=== PATIENT | female | born 1970 | race Caucasian/White ===

== ENCOUNTER → 2023-01-16 | Outpatient (REF) | payer MEDICAID ==
[2023-01-16 17:40] LABS: BASO # 0.1 10^3/uL (0.0-0.2); EOS # 0.1 10^3/uL (0.0-0.5); EOS % 2.7 % (0.0-3.0); HEMATOCRIT 39.2 % (36.0-47.0); HEMOGLOBIN 12.7 g/dl (12.0-15.5); LYMPH # 2.4 10^3/uL (1.5-5.0); LYMPH % 45.8 % (24.0-44.0); MEAN CORPUSCULAR HGB CONC 32.4 g/dl (32.0-36.5); MEAN CORPUSCULAR VOLUME 92.7 fl (80.0-96.0); MONO # 0.4 10^3/uL (0.0-0.8); MONO % 7.6 % (2.0-8.0); NEUTROPHILS # 2.2 10^3/uL (1.5-8.5); NEUTROPHILS % 42.7 % (36.0-66.0); RED BLOOD COUNT 4.23 10^6/uL (4.00-5.40); WHITE BLOOD COUNT 5.2 10^3/uL (4.0-10.0)
[2023-01-16 18:00] LABS: URIC ACID 4.1 MG/DL (3.1-7.8)
[2023-01-16 18:02] LABS: C REACTIVE PROTEIN QUANTITATIV < 0.40 MG/DL (<1.0); RHEUMATOID FACTOR QUANT < 3.5 IU/ML (<14); THYROID STIMULATING HORMONE 1.394 uIU/ML (0.55-4.78)
[2023-01-16 18:04] LABS: ALBUMIN 4.2 G/DL (3.2-5.2); ALKALINE PHOSPHATASE 69 U/L (46-116); ALT/SGPT 15 U/L (7.0-40); AST/SGOT 21 U/L (<34); BILIRUBIN,TOTAL 0.6 MG/DL (0.3-1.2); BLOOD UREA NITROGEN 13 MG/DL (9-23); CALCIUM LEVEL 9.5 MG/DL (8.5-10.1); CARBON DIOXIDE LEVEL 30 MMOL/L (20-31); CHLORIDE LEVEL 103 MMOL/L (98-107); CHOLESTEROL LEVEL 241 MG/DL (<200); CHOLESTEROL RISK RATIO 3.37 (<5); CREATININE FOR GFR 0.74 MG/DL (0.55-1.30); GLOMERULAR FILTRATION RATE > 60.0 (>51); GLUCOSE, FASTING 77 MG/DL (60-100); HDL CHOLESTEROL 71.4 MG/DL (>40); LDL CHOLESTEROL 153.8 MG/DL (<100); NON-HDL-C 169.6 MG/DL; POTASSIUM SERUM 4.5 MMOL/L (3.5-5.1); SODIUM LEVEL 141 MMOL/L (136-145); TRIGLYCERIDES LEVEL 79 MG/DL (<150)
[2023-01-18 23:07] LABS: ANA (HEP2) Negative (.); CYCLIC CITRULLINATED PEPTIDE 1 units (0-19)
== END ==
LOC: M LAB REF 12:34
PROVIDERS: ATTEND Pediatrics
DX: R82.90 Unspecified abnormal findings in urine (principal); M79.7 Fibromyalgia

== ENCOUNTER → 2023-02-07 | Outpatient (CLI) | payer OTHER | LOC: M WHC 08:15 | PROVIDERS: ATTEND Pediatrics | DX: Z13.820 Encounter for screening for osteoporosis (principal); Z12.31 Encounter for screening mammogram for malignant neoplasm of breast ==

== ENCOUNTER → 2023-03-06 | Outpatient (CLI) | payer OTHER | LOC: M WHC 10:04 | PROVIDERS: ATTEND Pediatrics | DX: Z12.31 Encounter for screening mammogram for malignant neoplasm of breast (principal) ==

== ENCOUNTER → 2023-04-09 | Outpatient (CLI) | payer OTHER | LOC: M RAD 11:34 | PROVIDERS: ATTEND Pediatrics | DX: M54.16 Radiculopathy, lumbar region (principal) ==

== ENCOUNTER → 2023-04-19 | Outpatient (CLI) | payer OTHER | LOC: M RAD 11:16 | PROVIDERS: ATTEND Pediatrics | DX: R05.9 Cough, unspecified (principal) ==

== ENCOUNTER → 2023-04-25 | Outpatient (CLI) | payer OTHER | LOC: M SOG 11:34 | PROVIDERS: ATTEND Physician Assistant | DX: M25.551 Pain in right hip (principal) ==

== ENCOUNTER → 2023-05-04 | Outpatient (CLI) | payer OTHER | LOC: M RAD 09:18 | PROVIDERS: ATTEND Physician Assistant | DX: M54.50 Low back pain, unspecified (principal) ==

== ENCOUNTER → 2023-06-20 | Outpatient (REF) | payer OTHER ==
[2023-06-20 18:02] LABS: BASO % 0.7 % (0.0-1.0); EOS # 0.2 10^3/uL (0.0-0.5); EOS % 4.8 % (0.0-3.0); HEMATOCRIT 39.6 % (36.0-47.0); HEMOGLOBIN 13.2 g/dl (12.0-15.5); LYMPH # 1.8 10^3/uL (1.5-5.0); LYMPH % 43.3 % (24.0-44.0); MEAN CORPUSCULAR HEMOGLOBIN 30.5 pg (27.0-33.0); MEAN CORPUSCULAR HGB CONC 33.3 g/dl (32.0-36.5); MEAN CORPUSCULAR VOLUME 91.5 fl (80.0-96.0); MONO # 0.4 10^3/uL (0.0-0.8); MONO % 9.3 % (2.0-8.0); NEUTROPHILS # 1.8 10^3/uL (1.5-8.5); NEUTROPHILS % 41.7 % (36.0-66.0); RED BLOOD COUNT 4.33 10^6/uL (4.00-5.40); WHITE BLOOD COUNT 4.2 10^3/uL (4.0-10.0)
[2023-06-20 18:16] LABS: ERYTHROCYTE SEDIMENTATION RATE 34 mm/hr (0-30)
[2023-06-20 18:23] LABS: THYROID STIMULATING HORMONE 1.884 uIU/ML (0.55-4.78); TOTAL 25(OH) VITAMIN D 34.2 NG/ML (20.0-100.0)
[2023-06-20 18:25] LABS: ALBUMIN 4.1 G/DL (3.2-5.2); ALKALINE PHOSPHATASE 64 U/L (46-116); ALT/SGPT 19 U/L (7.0-40); AST/SGOT 20 U/L (<34); BILIRUBIN,TOTAL 0.8 MG/DL (0.3-1.2); BLOOD UREA NITROGEN 14 MG/DL (9-23); CALCIUM LEVEL 9.5 MG/DL (8.5-10.1); CARBON DIOXIDE LEVEL 31 MMOL/L (20-31); CHLORIDE LEVEL 104 MMOL/L (98-107); CREATININE FOR GFR 0.75 MG/DL (0.55-1.30); GLOMERULAR FILTRATION RATE > 60.0 (>51); GLUCOSE, FASTING 73 MG/DL (60-100); POTASSIUM SERUM 4.5 MMOL/L (3.5-5.1); RHEUMATOID FACTOR QUANT 6.2 IU/ML (<14); SODIUM LEVEL 140 MMOL/L (136-145); TOTAL PROTEIN 7.8 G/DL (5.7-8.2)
[2023-06-22 14:14] LABS: ANTINUCLEAR ANTIBODIES DIRECT Negative (Negative)
== END ==
LOC: M LABDRWCV 17:18
PROVIDERS: ATTEND Psychiatry & Neurology Neurology
DX: R51.9 Headache, unspecified (principal)

== ENCOUNTER → 2023-08-01 | Outpatient (CLI) | payer OTHER | LOC: M WUC 10:32 | PROVIDERS: ATTEND Pediatrics | DX: M19.041 Primary osteoarthritis, right hand (principal); M19.042 Primary osteoarthritis, left hand; E03.9 Hypothyroidism, unspecified ==

== ENCOUNTER → 2023-11-30 | Outpatient (CLI) | payer OTHER | LOC: M PLAIMG 10:38 | PROVIDERS: ATTEND Otolaryngology | DX: J01.90 Acute sinusitis, unspecified (principal) ==

== ENCOUNTER → 2023-12-10 | Outpatient (REF) | payer OTHER ==
[2023-12-10 18:41] LABS: BASO % 0.5 % (0.0-1.0); EOS # 0.2 10^3/uL (0.0-0.5); HEMATOCRIT 39.7 % (36.0-47.0); LYMPH # 2.3 10^3/uL (1.5-5.0); LYMPH % 36.5 % (24.0-44.0); MEAN CORPUSCULAR HEMOGLOBIN 30.4 pg (27.0-33.0); MEAN CORPUSCULAR HGB CONC 32.7 g/dl (32.0-36.5); MONO # 0.6 10^3/uL (0.0-0.8); NEUTROPHILS # 3.3 10^3/uL (1.5-8.5); RED BLOOD COUNT 4.27 10^6/uL (4.00-5.40); WHITE BLOOD COUNT 6.4 10^3/uL (4.0-10.0)
== END ==
LOC: M LAB REF 16:22
PROVIDERS: ATTEND Pediatrics
DX: M79.7 Fibromyalgia (principal); E03.9 Hypothyroidism, unspecified

== ENCOUNTER → 2023-12-13 | Outpatient (REF) | payer OTHER ==
[2023-12-17 14:38] LABS: HPV APTIMA Not Detected (Not Detected)
== END ==
LOC: M SFHCWAGY 14:42
PROVIDERS: ATTEND Nurse Practitioner Family
DX: Z12.4 Encounter for screening for malignant neoplasm of cervix (principal); N95.2 Postmenopausal atrophic vaginitis

== ENCOUNTER → 2023-12-24 | Outpatient (CLI) | payer OTHER ==
[2023-12-24 10:37] LABS: ERYTHROCYTE SEDIMENTATION RATE 24 mm/hr (0-30)
[2023-12-24 10:41] LABS: BASO # 0.1 10^3/uL (0.0-0.2); BASO % 1.2 % (0.0-1.0); EOS # 0.2 10^3/uL (0.0-0.5); EOS % 4.1 % (0.0-3.0); HEMATOCRIT 38.2 % (36.0-47.0); HEMOGLOBIN 12.6 g/dl (12.0-15.5); LYMPH # 2.1 10^3/uL (1.5-5.0); LYMPH % 47.7 % (24.0-44.0); MEAN CORPUSCULAR HEMOGLOBIN 30.7 pg (27.0-33.0); MEAN CORPUSCULAR VOLUME 92.9 fl (80.0-96.0); MONO # 0.4 10^3/uL (0.0-0.8); MONO % 8.1 % (2.0-8.0); NEUTROPHILS # 1.7 10^3/uL (1.5-8.5); NEUTROPHILS % 38.7 % (36.0-66.0); RED BLOOD COUNT 4.11 10^6/uL (4.00-5.40); WHITE BLOOD COUNT 4.3 10^3/uL (4.0-10.0)
[2023-12-24 11:00] LABS: URIC ACID 4.8 MG/DL (3.1-7.8)
[2023-12-24 11:01] LABS: C REACTIVE PROTEIN QUANTITATIV < 0.40 MG/DL (<1.0)
[2023-12-24 11:03] LABS: ALBUMIN 4.1 G/DL (3.2-5.2); ALKALINE PHOSPHATASE 74 U/L (46-116); ALT/SGPT 18 U/L (7.0-40); AST/SGOT 19 U/L (<34); BILIRUBIN,TOTAL 0.5 MG/DL (0.3-1.2); BLOOD UREA NITROGEN 12 MG/DL (9-23); CALCIUM LEVEL 9.1 MG/DL (8.5-10.1); CARBON DIOXIDE LEVEL 30 MMOL/L (20-31); CHLORIDE LEVEL 105 MMOL/L (98-107); CREATININE FOR GFR 0.77 MG/DL (0.55-1.30); GLOMERULAR FILTRATION RATE > 60.0 (>51); GLUCOSE, FASTING 88 MG/DL (60-100); POTASSIUM SERUM 3.9 MMOL/L (3.5-5.1); SODIUM LEVEL 142 MMOL/L (136-145); TOTAL PROTEIN 7.9 G/DL (5.7-8.2)
[2023-12-24 14:27] LABS: RHEUMATOID FACTOR QUANT 7.1 IU/ML (<14)
[2023-12-25 13:16] LABS: ANA SCREEN, IFA NEGATIVE (NEGATIVE)
[2023-12-25 23:07] LABS: CYCLIC CITRULLINATED PEPTIDE < 16 UNITS (<20)
== END ==
LOC: M WUC 08:22
PROVIDERS: ATTEND Orthopaedic Surgery Hand Surgery
DX: G89.29 Other chronic pain (principal)

== ENCOUNTER → 2024-01-16 | Outpatient (CLI) | payer OTHER ==
[2024-01-16 13:07] LABS: FREE T4 1.52 NG/DL (0.89-1.76); THYROID STIMULATING HORMONE 0.539 uIU/ML (0.55-4.78); THYROXINE (T4) 11.5 UG/DL (4.5-10.9)
== END ==
LOC: M LAB 11:27
PROVIDERS: ATTEND Nurse Practitioner Family
DX: E06.3 Autoimmune thyroiditis (principal)

== ENCOUNTER → 2024-01-31 | Outpatient (CLI) | payer OTHER | LOC: M CARPUL 10:23 | PROVIDERS: ATTEND Pediatrics | DX: R06.00 Dyspnea, unspecified (principal) ==

== ENCOUNTER → 2024-02-08 | Outpatient (REF) | payer OTHER | LOC: M LAB REF 10:07 | PROVIDERS: ATTEND Nurse Practitioner Family | DX: E06.3 Autoimmune thyroiditis (principal) ==

== ENCOUNTER 2024-03-24 09:32 | Day surgery (SDC) | payer OTHER ==
[~2024-03-24] VITALS: Ht 160 cm; Wt 71.2 kg
[~2024-03-24 09:32] MED LIST: LEVO-92 PO; MAGN250T7 PO; MULT-40 PO; NORT50CA PO
[2024-03-24] MEDS ORDERED: NS (Normal Saline) 0.9% 1,000 ML IV SCH (10:05)
[2024-03-24] MEDS ORDERED: SUGAMMADEX SODIUM 500 MG/5 ML VIAL (BRIDION) As Ordered ONE (10:13)
[2024-03-24] MEDS ORDERED: ONDANSETRON 4MG 2ML VIAL As Ordered ONE (10:13)
[2024-03-24] MEDS ORDERED: LIDOCAINE 2% 100MG/5ML SDV (FOR ANES.) As Ordered ONE (10:13)
[2024-03-24] MEDS ORDERED: ROCURONIUM BROMIDE 50MG/5ML VIAL As Ordered ONE (10:13)
[2024-03-24] MEDS ORDERED: propofoL 200 MG/20 ML VIAL As Ordered ONE (10:13)
[2024-03-24] MEDS ORDERED: MIDAZOLAM INJ 2MG/2ML VIAL As Ordered ONE (10:17)
[2024-03-24] MEDS ORDERED: fentaNYL 100 MCG/2 ML INJECTION As Ordered ONE (10:17)
[2024-03-24] MEDS: LIDOCAINE W/EPINEPHRINE 1% 20ML VIAL As Ordered ONE (12:00)
[2024-03-24] MEDS: COCAINE 4% 4ML NASAL SOLUTION BTL As Ordered ONE (12:00)
[2024-03-24] MEDS ORDERED: ACETAMINOPHEN 1000MG/100ML IV BAG As Ordered ONE (12:01)
[2024-03-24] MEDS: OXYMETAZOLINE 0.05% NASAL SPRAY (AFRIN) As Ordered ONE (12:15)
[2024-03-24] MEDS ORDERED: fentaNYL 100 MCG/2 ML INJECTION IV PRN ×2 (12:15)
[2024-03-24] MEDS ORDERED: oxyCODONE 5MG TAB PO PRN (12:15)
[2024-03-24] MEDS ORDERED: MEPERIDINE 25 MG/ML 1ML VIAL IV PRN ×2 (12:15)
[2024-03-24] MEDS ORDERED: ONDANSETRON 4MG 2ML VIAL IV PRN ×2 (12:15)
[2024-03-24] MEDS: oxyCODONE 5MG TAB PO PRN (12:37)
[2024-03-24] MEDS ORDERED: ANEXSIA, NORCO 7.5MG/325MG TABLET(HYDROCODONE/APAP) PO PRN (12:50)
[2024-03-24] MEDS ORDERED: LR 1,000 ML IV SCH (12:50)
[2024-03-24 13:15] VITALS: BP 129/61; TEMP 97; O2SAT 99
== END 2024-03-24 13:47 | disposition home or self-care (01) ==
LOC: M SDC 09:32
PROVIDERS: ATTEND Otolaryngology
DX: J34.3 Hypertrophy of nasal turbinates (principal); H93.13 Tinnitus, bilateral; E03.9 Hypothyroidism, unspecified; E78.00 Pure hypercholesterolemia, unspecified; Z79.890 Hormone replacement therapy; Z79.899 Other long term (current) drug therapy; G43.909 Migraine, unspecified, not intractable, without status migrainosus; Z91.018 Allergy to other foods; Z90.89 Acquired absence of other organs
CPT/HCPCS: 30140; 93005; C9143; J0131; J1100; J2250; J2405; J3010

== ENCOUNTER → 2024-03-27 | Outpatient (CLI) | payer OTHER ==
[2024-03-27 11:46] LABS: BASO % 0.8 % (0.0-1.0); EOS # 0.1 10^3/uL (0.0-0.5); EOS % 2.1 % (0.0-3.0); HEMATOCRIT 36.3 % (36.0-47.0); LYMPH # 2.3 10^3/uL (1.5-5.0); LYMPH % 44.8 % (24.0-44.0); MEAN CORPUSCULAR HEMOGLOBIN 29.8 pg (27.0-33.0); MEAN CORPUSCULAR HGB CONC 33.1 g/dl (32.0-36.5); MEAN CORPUSCULAR VOLUME 90.1 fl (80.0-96.0); MONO # 0.3 10^3/uL (0.0-0.8); MONO % 6.4 % (2.0-8.0); NEUTROPHILS # 2.3 10^3/uL (1.5-8.5); NEUTROPHILS % 45.7 % (36.0-66.0); PLATELET COUNT, AUTOMATED 186 10^3/uL (150-450); RED BLOOD COUNT 4.03 10^6/uL (4.00-5.40); WHITE BLOOD COUNT 5.1 10^3/uL (4.0-10.0)
[2024-03-27 12:01] LABS: ERYTHROCYTE SEDIMENTATION RATE 26 mm/hr (0-30)
[2024-03-27 12:11] LABS: URIC ACID 4.2 MG/DL (3.1-7.8)
[2024-03-27 12:13] LABS: C REACTIVE PROTEIN QUANTITATIV < 0.50 MG/DL (<1.0); THYROID STIMULATING HORMONE 1.707 uIU/ML (0.55-4.78)
[2024-03-27 12:14] LABS: FREE T4 1.77 NG/DL (0.89-1.76)
[2024-03-27 12:15] LABS: ALBUMIN 4.1 G/DL (3.2-5.2); ALKALINE PHOSPHATASE 57 U/L (35-104); ALT/SGPT 18 U/L (7.0-40); AST/SGOT 19 U/L (<34); BILIRUBIN,TOTAL 0.7 MG/DL (0.3-1.2); BLOOD UREA NITROGEN 11 MG/DL (9-23); CALCIUM LEVEL 9.4 MG/DL (8.5-10.1); CARBON DIOXIDE LEVEL 29 MMOL/L (20-31); CHLORIDE LEVEL 107 MMOL/L (98-107); CHOLESTEROL LEVEL 239 MG/DL (<200); CHOLESTEROL RISK RATIO 3.26 (<5); CREATININE FOR GFR 0.77 MG/DL (0.55-1.30); GLOMERULAR FILTRATION RATE > 60.0 (>51); GLUCOSE, FASTING 88 MG/DL (60-100); HDL CHOLESTEROL 73.3 MG/DL (>40); LDL CHOLESTEROL 152.5 MG/DL (<100); NON-HDL-C 165.7 MG/DL; POTASSIUM SERUM 4.2 MMOL/L (3.5-5.1); RHEUMATOID FACTOR QUANT 7.5 IU/ML (<14); SODIUM LEVEL 143 MMOL/L (136-145); TOTAL PROTEIN 7.8 G/DL (5.7-8.2); TRIGLYCERIDES LEVEL 66 MG/DL (<150)
== END ==
LOC: M LAB 11:00
PROVIDERS: ATTEND Registered Nurse
DX: M79.7 Fibromyalgia (principal); E78.2 Mixed hyperlipidemia

== ENCOUNTER → 2024-05-26 | Outpatient (CLI) | payer OTHER ==
[2024-05-26 15:00] LABS: FREE T4 1.27 NG/DL (0.89-1.76); THYROID STIMULATING HORMONE 5.002 uIU/ML (0.55-4.78)
== END ==
LOC: M PLALAB 11:11
PROVIDERS: ATTEND Nurse Practitioner Family
DX: E06.3 Autoimmune thyroiditis (principal)

== ENCOUNTER → 2024-05-26 | Outpatient (CLI) | payer OTHER | LOC: M PLALAB 11:09 | PROVIDERS: ATTEND Physician Assistant | DX: R06.02 Shortness of breath (principal); R05.9 Cough, unspecified; Z77.120 Contact with and (suspected) exposure to mold (toxic) ==

== ENCOUNTER → 2024-06-11 | Outpatient (CLI) | payer OTHER | LOC: M RAD 09:34 | PROVIDERS: ATTEND Physician Assistant | DX: R06.02 Shortness of breath (principal) ==

== ENCOUNTER → 2024-06-13 | Outpatient (REF) | payer OTHER ==
[2024-06-13 15:53] LABS: APPEARANCE, URINE CLEAR (CLEAR); BACTERIA, URINE AUTO NEGATIVE (NEGATIVE); BILIRUBIN, URINE AUTO NEGATIVE (NEGATIVE); BLOOD, URINE BLOOD NEGATIVE (NEGATIVE); COLOR, URINE STRAW (YELLOW); GLUCOSE, URINE (UA) AUTO NEGATIVE (NEGATIVE); KETONE, URINE AUTO NEGATIVE (NEGATIVE); LEUKOCYTE ESTERASE, URINE AUTO NEGATIVE (NEGATIVE); NITRITE, URINE AUTO NEGATIVE (NEGATIVE); PROTEIN, URINE AUTO NEGATIVE (NEGATIVE); RBC, URINE AUTO 0 /HPF (0-3); SPECIFIC GRAVITY URINE AUTO 1.003 (1.002-1.035); SQUAMOUS EPITHELIAL CELL UR AU 0 /HPF (0-6); UROBILINOGEN, URINE AUTO 0.2 mg/dL (0.0-2.0); WBC, URINE AUTO 0 /HPF (0-3)
[2024-06-13 15:57] LABS: COMPLEMENT C4 31.7 MG/DL (12-36)
[2024-06-13 15:58] LABS: ALBUMIN 4.2 G/DL (3.2-5.2); ALKALINE PHOSPHATASE 64 U/L (35-104); ALT/SGPT 16 U/L (7.0-40); AST/SGOT 19 U/L (<34); BILIRUBIN,DIRECT 0.2 MG/DL (<0.4); BILIRUBIN,TOTAL 0.9 MG/DL (0.3-1.2); BLOOD UREA NITROGEN 11 MG/DL (9-23); C REACTIVE PROTEIN QUANTITATIV < 0.50 MG/DL (<1.0); CALCIUM LEVEL 9.1 MG/DL (8.5-10.1); CARBON DIOXIDE LEVEL 31 MMOL/L (20-31); CHLORIDE LEVEL 103 MMOL/L (98-107); CREATININE FOR GFR 0.76 MG/DL (0.55-1.30); GLOMERULAR FILTRATION RATE > 60.0 (>51); GLUCOSE, FASTING 89 MG/DL (60-100); POTASSIUM SERUM 3.7 MMOL/L (3.5-5.1); SODIUM LEVEL 141 MMOL/L (136-145)
[2024-06-13 15:59] LABS: COMPLEMENT C3 137.4 MG/DL (90.0-170.0)
[2024-06-13 16:06] LABS: ERYTHROCYTE SEDIMENTATION RATE 26 mm/hr (0-30)
[2024-06-13 16:11] LABS: BASO % 0.7 % (0.0-1.0); EOS # 0.2 10^3/uL (0.0-0.5); EOS % 4.3 % (0.0-3.0); HEMATOCRIT 40.1 % (36.0-47.0); HEMOGLOBIN 12.7 g/dl (12.0-15.5); LYMPH # 1.9 10^3/uL (1.5-5.0); LYMPH % 44.9 % (24.0-44.0); MEAN CORPUSCULAR HEMOGLOBIN 29.8 pg (27.0-33.0); MEAN CORPUSCULAR HGB CONC 31.7 g/dl (32.0-36.5); MEAN CORPUSCULAR VOLUME 94.1 fl (80.0-96.0); MONO # 0.3 10^3/uL (0.0-0.8); MONO % 7.7 % (2.0-8.0); NEUTROPHILS # 1.7 10^3/uL (1.5-8.5); NEUTROPHILS % 42.2 % (36.0-66.0); RED BLOOD COUNT 4.26 10^6/uL (4.00-5.40); WHITE BLOOD COUNT 4.1 10^3/uL (4.0-10.0)
[2024-06-13 17:21] LABS: CREATININE,RANDOM URINE 37.6 MG/DL
[2024-06-13 17:22] LABS: TOTAL PROTEIN,RANDOM URINE < 6.0 MG/DL (0.0-14.0)
[2024-06-24 10:54] LABS: HLA-B27 NEGATIVE (NEGATIVE)
[2024-06-24 10:55] LABS: LUPUS ANTICOAGULANT NOT DETECTED (NOT DETECT); PTT-LA 40 SEC (<=40)
[2024-06-24 10:56] LABS: COMPLEMENT TOTAL (CH50) 45 U/mL (31-60); dRVVT 35 SEC (<=45)
== END ==
LOC: M SFHCRHEU 06:57
PROVIDERS: ATTEND Internal Medicine
DX: I73.00 Raynaud's syndrome without gangrene (principal); M25.40 Effusion, unspecified joint; M25.50 Pain in unspecified joint; H04.123 Dry eye syndrome of bilateral lacrimal glands; Z87.39 Personal history of other diseases of the musculoskeletal system and connective tissue

== ENCOUNTER → 2024-06-13 | Outpatient (CLI) | payer OTHER | LOC: M RAD 08:51 | PROVIDERS: ATTEND Internal Medicine | DX: M25.50 Pain in unspecified joint (principal) ==

== ENCOUNTER → 2024-07-10 | Outpatient (CLI) | payer OTHER ==
[~2024-07-10] MED LIST changes: +METHACHOLINE KIT (6 VIAL.NEB PREMIX) INH ONE
== END ==
LOC: M CARPUL 08:33
PROVIDERS: ATTEND Physician Assistant
DX: R06.02 Shortness of breath (principal)
CPT/HCPCS: 94070; 95070; J7674

== ENCOUNTER → 2024-07-10 | Outpatient (CLI) | payer OTHER ==
[~2024-07-10] MED LIST changes: -METHACHOLINE KIT (6 VIAL.NEB PREMIX) INH ONE
[2024-07-10 10:19] LABS: ALBUMIN 4.1 G/DL (3.2-5.2); BILIRUBIN,TOTAL 0.7 MG/DL (0.3-1.2); CALCIUM LEVEL 8.8 MG/DL (8.5-10.1); CHOLESTEROL RISK RATIO 3.43 (<5); CREATININE FOR GFR 0.8 MG/DL (0.55-1.30); GLOMERULAR FILTRATION RATE 88.6 (>51); HDL CHOLESTEROL 72.2 MG/DL (>40); LDL CHOLESTEROL 163.4 MG/DL (<100); NON-HDL-C 175.8 MG/DL; TOTAL PROTEIN 7.7 G/DL (5.7-8.2)
[2024-07-10 10:22] LABS: HEMOGLOBIN A1c 4.7 % (4.0-6.0)
== END ==
LOC: M LAB 08:36
PROVIDERS: ATTEND Internal Medicine Cardiovascular Disease
DX: R00.2 Palpitations (principal); I06.1 Rheumatic aortic insufficiency; R07.89 Other chest pain; R06.02 Shortness of breath; E78.2 Mixed hyperlipidemia; Z13.1 Encounter for screening for diabetes mellitus

== ENCOUNTER → 2024-07-24 | Outpatient (REF) | payer OTHER ==
[2024-07-24 18:58] LABS: THYROID STIMULATING HORMONE 2.337 uIU/ML (0.55-4.78)
[2024-07-24 18:59] LABS: FREE T4 1.52 NG/DL (0.89-1.76)
[2024-07-24 19:06] LABS: TOTAL T3 98.9 NG/DL (60.0-181.0)
== END ==
LOC: M LAB REF 17:38 → M LABDRWCV 17:38
PROVIDERS: ATTEND Nurse Practitioner Family
DX: E06.3 Autoimmune thyroiditis (principal)

== ENCOUNTER → 2024-07-29 | Outpatient (CLI) | payer OTHER | LOC: M RAD 10:59 | PROVIDERS: ATTEND Internal Medicine | DX: M25.531 Pain in right wrist (principal); M25.532 Pain in left wrist ==